=== PATIENT | female | born 1950 | race Caucasian/White ===

== ENCOUNTER → 2017-08-30 12:14 | Outpatient (CLI) | payer MEDICARE, SELFPAY ==
--- NOTE | 2017-08-30 13:36 | ECHOD_ITS ---
Reason For Study: Mitral valve regurgitation Procedure This was a 2D Doppler, Color Flow transthoracic echocardiogram. The exam was of adequate technical quality. Exam performed in department. Left Ventricle Normal LV size. Left ventricular systolic function is normal. The estimated ejection fraction is 65 %. Transmitral diastolic flow velocities suggest moderate (stage 2) diastolic dysfunction (pseudonormal pattern). No regional wall motion abnormalities noted. Right Ventricle Normal RV size. Normal systolic function. Atria The left atrium is mildly enlarged. The right atrium is mildly enlarged. No doppler evidence for ASD. Mitral Valve There is no mitral annular calcification. Normal mitral valve. Mild (1+) mitral valve insufficiency. Tricuspid Valve Normal tricuspid valve. Mild tricuspid valve insufficiency. Right ventricular systolic pressure estimated to be 28 mmHg. Aortic Valve Trisinus/trileaflet aortic valve. Normal aortic valve. Pulmonic Valve The pulmonic valve is not well visualized. Great Vessels Normal sized aortic root. Pericardium/Pleural No pericardial effusion. MMode/2D Measurements & Calculations LVIDd: 3.5 cm IVSd: 1.1 cm Ao root diam: 2.6 cm LVIDs: 1.6 cm LVPWd: 1.0 cm LA dimension: 2.7 cm RVDd: 2.8 cm FS: 53.9 % LAV(MOD-bp): 37.3 ml LA A4 area: 15.8 cm2 RA A4 area: 12.1 cm2 LAV(MOD-bp) Indexed: 25.5 ml/m2 LAV(MOD-sp2): 25.3 ml LAV(MOD-sp4): 39.4 ml Doppler Measurements & Calculations MV E max amari: 95.3 cm/sec Lat Peak E' Amari: 14.1 cm/sec Med Peak E' Amari: 10.5 cm/sec MV A max amari: 71.6 cm/sec E/E' lat: 6.8 E/E' med: 9.1 MV E/A: 1.3 Ao V2 max: 113.8 cm/sec LV V1 max: 89.7 cm/sec PA V2 max: 79.4 cm/sec Ao max P.2 mmHg LV V1 max P.2 mmHg TR max amari: 248.0 cm/sec TR max P.6 mmHg Interpretation Summary Left ventricular systolic function is normal. The estimated ejection fraction is 65 %. The left atrium is mildly enlarged. The right atrium is mildly enlarged. Mild (1+) mitral valve insufficiency. Mild tricuspid valve insufficiency. Right ventricular systolic pressure estimated to be 28 mmHg. Transmitral diastolic flow velocities suggest diastolic dysfunction (pseudonormal pattern). Ordering Physician: JOHNNY PATEL Referring Physician: Johnny Patel Performed By: Alyse Garza RDCS
--- NOTE | 2017-08-31 07:09 | PFTCOMP_ITS ---
COMPLETE PULMONARY FUNCTION TEST INTERPRETATION Brief HPI: Patient is a 67 year old female, currently under the care of Richard Shaw, who presents to [facility] for complete pulmonary function tests secondary to diagnosis of tobacco use. Respiratory therapist reports good effort and reproducible results. Interpretation: Forced expiration spirometry shows no large airways obstructive ventilatory defect with an FEV1 of 81 % predicted. There is no significant bronchodilator response by ATS criteria. Spirograms are of good quality and plateau normally. The respiratory flow volume loop shows decreased expiratory flow rates at high lung volumes consistent with small airways obstruction. Lung volumes by body plethysmography show a decreased total lung capacity at 3.86 L, 80 % predicted. All other lung volumes are reduced symmetrically. Diffusion capacity by carbon monoxide is at the lower limit of normal at 67 % predicted. The airway resistance is normal. No previous pulmonary function tests were available for review. Impression: Mild restrictive ventilatory defect with diffusion capacity at the lower limit of normal. Consider chest imaging for interstitial lung disease or musculoskeletal restriction if not completed previously.
== END ==
PROVIDERS: Family Provider Nurse Practitioner Family; PCP Nurse Practitioner Family; Visit Provider Nurse Practitioner Family
DX: I34.0 Nonrheumatic mitral (valve) insufficiency (principal); I07.1 Rheumatic tricuspid insufficiency; R01.1 Cardiac murmur, unspecified; F17.200 Nicotine dependence, unspecified, uncomplicated
CPT/HCPCS: 93306; 94060; 94726; 94729

== ENCOUNTER → 2017-09-05 13:23 | Outpatient (CLI) | payer MEDICARE, SELFPAY ==
--- NOTE | 2017-09-05 13:25 | HPBI_ITS ---
MAMMOGRAPHY - BILATERAL SCREENING REASON FOR EXAM: Female, 67 years old. Routine annual screening examination. PERTINENT HISTORY: Non-contributory. TECHNIQUE: Digital bilateral breast yoseph (3D mammographic acquisition) in the CC and MLO projections. 2-D mediolateral oblique (MLO) and craniocaudad (CC) views of both breasts were obtained. CAD: Full Field Digital Mammography with Computer Added Detection was performed. COMPARISON: Comparison is made with prior examination dated August 12, 2014. FINDINGS: Breast Composition: The breasts are heterogeneously dense, which may obscure small masses. There are no dominant masses or suspicious calcifications. Stable vascular calcification. Stable calcified nodular density in the deep upper lateral portion of the left breast. This most likely represents a calcified fibroadenoma. No other significant abnormalities are identified. There has been no significant change since the prior study. HPBI/SCREENING MAMM (CAD), BILAT IMPRESSION: Stable bilateral screening mammogram. Yearly follow-up mammogram recommended. (A) ASSESSMENT CATEGORY: BIRADS Category 2: Benign. A letter regarding these results will be sent to the patient by the facility within 30 days. Approximately 10% of breast cancers are not detected by mammography. A normal mammogram should not delay biopsy of a clinically suspicious abnormality. [id number] Electronically Signed: Jericho Garcia MD at 15:27 EST Tel [phone], Service support ,
--- NOTE | 2017-09-05 13:25 | HPBD_ITS ---
STUDY: DUAL ENERGY X-RAY ABSORPTIOMETRY / DXA REASON FOR EXAM: Female, 67 years old. The patient is postmenopausal. Loss of height. TECHNIQUE: Bone Mineral Density (BMD) measurements of lumbar spine and right hip were obtained. COMPARISON: None. FINDINGS: Lumbar Spine (L1-L4): g/cm2 (0.813) / T-score (-3.2) / Z-score (-1.6) Findings are suggestive of osteoporosis with a high fracture risk. Right Femur Total: g/cm2 (0.512) / T-score (-3.9) / Z-score (-2.7) Right Femoral Neck: g/cm2 (0.606) / T-score (-3.1) / Z-score (-1.6) HPBD/Dexa Bone Density Study (HP) IMPRESSION: The patient is considered osteoporotic as outlined below according to World Kel Organization (WHO) criteria with a high fracture risk. Reference Information: The T-score is the number of standard deviations above or below the standard which is normal for young adults at their peak bone mineral density. The World Health Organization (WHO) interprets the T-scores as follows: Above -1 Normal bone density Between -1 and -2.5 Osteopenia Equal to / or below -2.5 Osteoporosis As a practical clinical guideline, osteopenia may be graded as follows: Mild -1 through -1.5 Moderate -1.6 through -2.0 Severe -2.1 through -2.4 The Z-score is the number of standard deviations above or below age-matched controls. A Z-score of less than -1.5 would be considered abnormal. References: 1. NIH Osteoporosis and Related Bone Diseases http://www.osteo.org 2. International Society for Clinical Densitometry http://www.iscd.org 3. National Osteoporosis Foundation http://www.nof.org Electronically Signed: Jericho Garcia MD at 15:20 EST Tel [phone], Service support ,
== END ==
PROVIDERS: Family Provider Nurse Practitioner Family; PCP Nurse Practitioner Family; Visit Provider Nurse Practitioner Family
DX: Z78.0 Asymptomatic menopausal state (principal); Z12.31 Encounter for screening mammogram for malignant neoplasm of breast
CPT/HCPCS: 77063; 77067; 77080

== ENCOUNTER → 2017-09-21 02:46 | Outpatient (CLI) | payer MEDICARE, SELFPAY ==
[2017-09-21 03:12] LABS: Absolute Lymphocyte Count 2.42 X10^3/ul (0.83-4.51); Absolute Neutrophil Count 3.2 X10^3/uL (2.0-7.7); Basophil# 0.06 X10^3/uL; Basophil% 0.9 % (0-1); Eosinophil# 0.17 X10^3/uL; Eosinophils% 2.7 % (0-5); Hematocrit 40.2 % (37-47); Lymphocyte # 2.42 X10^3/ul (4.0); Lymphocyte % 37.8 % (19-41); Mean Corp Hgb Conc 32.3 g/gl (32-36); Mean Corpuscular Hgb 33.2 pg (27.0-32.0); Mean Corpuscular Volume 102.6 fL (81-99); Mean Platelet Vol. 9.4 fl (6.2-12.0); Monocyte# 0.57 X10^3/uL; Monocyte% 8.9 % (0-10); Neutrophil # 3.18 X10^3/uL (2.7-7.7); Neutrophil % 49.7 % (47-70); POSITIVE COUNT NO; POSITIVE DIFFERENTIAL NO; POSITIVE MORPHOLOGY NO; Platelet Count 190 K/mm3 (150-450); Red Blood Count 3.92 M/mm3 (4.2-5.4); White Blood Count 6.4 K/mm3 (4.4-11.0)
[2017-09-21 03:57] LABS: AST(SGOT) 24 U/L (15-37); Alanine Aminotransfer ALT/SGPT 28 U/L (13-56); Albumin, Serum 3.5 g/dL (3.2-5.0); Alkaline Phosphatase 89 U/L (45-117); Anion Gap 6 (5-15); BUN 7 mg/dL (7-18); BUN/Creat Ratio 8.1 RATIO (10-20); Calcium,Total 8.6 mg/dL (8.5-10.1); Chloride 109 mmol/L (98-107); Cholesterol 180 mg/dL (200); Creatinine, Serum 0.86 mg/dL (0.55-1.02); EST Glomerular Filtration Rate 70 mL/min (>60); Est Glom Filt Rate - Afr Amer 85 mL/min (>60); Globulin 3.6 g/dL (2.2-4.2); Glucose 80 mg/dL (74-106); High Density Lipoprotein 63 mg/dL; Potassium 4.3 mmol/L (3.5-5.1); Protein, Total 7.1 g/dL (6.4-8.2); Sodium Level 143 mmol/L (136-145); Triglycerides 123 mg/dL; Very Low Density Lipoprotein 25 mg/dL (5-40)
== END ==
PROVIDERS: Family Provider Nurse Practitioner Family; PCP Nurse Practitioner Family; Visit Provider Nurse Practitioner Family
DX: E78.5 Hyperlipidemia, unspecified (principal); I10 Essential (primary) hypertension
CPT/HCPCS: 36415; 80053; 80061; 85025

== ENCOUNTER → 2017-10-15 10:50 | Outpatient (CLI) | payer MEDICARE, SELFPAY ==
--- NOTE | 2017-10-15 11:12 | RAD_ITS ---
STUDY: X-RAY CHEST REASON FOR EXAM: Female, 67 years old. Chest pain, short of breath, COPD. TECHNIQUE: Frontal and lateral views of the chest. COMPARISON: 1 view the chest performed February 24, 2015. FINDINGS: There is hyperinflation of the lungs consistent with chronic obstructive lung disease (COPD). There is stable, mildly nodular, biapical pleural thickening appearing benign. There is no pneumothorax or pleural effusion. There is a curvilinear density seen only convincingly on the lateral view posterior to the cardiac margin and anterior to the vertebral column. This finding may represent atelectasis of a segment of the right middle lobe or of the right lower lobe. Alternatively this finding may represent pericardial fluid. There is borderline cardiomegaly. Normal mediastinum and tom. Normal visualized pulmonary arteries. There is atherosclerotic calcification of the aortic arch with tortuosity. Normal visualized thoracic spine. There is no evident acute osseous abnormality. There is no demonstrated abnormality of the visualized soft tissue structures of the upper abdomen. RAD/Chest PA and Lateral IMPRESSION: Hyperinflation and flattening of hemidiaphragms consistent with COPD. No focal alveolar opacification. Minimal nodular biapical pleural thickening/fibrosis 8.3 cm in length curvilinear density seen only convincingly on the lateral view posterior to the cardiac margin and anterior to the vertebral column. This finding may represent atelectasis of a segment of the right middle lobe or of the right lower lobe. Alternatively this finding may represent pericardial fluid. Overall, no convincing evidence of acute cardiopulmonary disease. Electronically Signed: Delvis Valera MD at 9:16 EDT , Service support ,
[2017-10-15 11:40] VITALS: PULSE 67; PULSE 70; PULSE 88; PULSE 91; PULSE 93; PULSE 94; PULSE 97; O2SAT 100; O2SAT 93; O2SAT 96; O2SAT 97; O2SAT 98; O2SAT 99
--- NOTE | 2017-10-15 13:08 | PCM.PSN.6M ---
PSN 6 Minute Walk Test - 6 Minute Walk Test 6 Minute Walk Test: 6 Minute Walk Test PSN:6-Minute Walk Test Start: 10/15/17 11:40 Freq: Status: Active Protocol: [id number] Document 10/15/17 11:40 [facility] [place]Rec: 10/15/17 11:43 [facility] [id number][place] 6 Minute Walk Test Date Performed 10/15/17 Time Performed 11:25 Height 5 ft 4 in Weight: 103 lb Weight in Pounds 103.[address]: Richard Lincoln Assistive device used: Cane Pre-test Oxygen Delivery Method Room Air Pulse Ox (%) 99 Pulse Rate (60-100 beats/min) 67 Dyspnea Idalia Scale (0-10) 0 Exertion Idalia Scale (6-20) 6 1st minute Oxygen Delivery Method Room Air Pulse Ox (%) 97 Pulse Rate (60-100 beats/min) 88 Number of Rests Taken 0 2nd minute Oxygen Delivery Method Room Air Pulse Ox (%) 96 Pulse Rate (60-100 beats/min) 93 Number of Rests Taken 0 3rd minute Oxygen Delivery Method Room Air Pulse Ox (%) 96 Pulse Rate (60-100 beats/min) 94 Number of Rests Taken 0 4th minute Oxygen Delivery Method Room Air Pulse Ox (%) 98 Pulse Rate (60-100 beats/min) 91 Number of Rests Taken 0 5th minute Oxygen Delivery Method Room Air Pulse Ox (%) 98 Pulse Rate (60-100 beats/min) 97 Number of Rests Taken 0 6th minute Oxygen Delivery Method Room Air Pulse Ox (%) 93 Pulse Rate (60-100 beats/min) 97 Number of Rests Taken 0 Post-test Oxygen Delivery Method Room Air Pulse Ox (%) 100 Pulse Rate (60-100 beats/min) 70 Dyspnea Idalia Scale (0-10) 2 Exertion Idalia Scale (6-20) 12 Number of Rests Taken 0 Full Laps Walked 18 Partial Lap, Number of Tiles Walked 34 Total Distance Walked (ft) 1096 - Interpretation Interpretation: The patient ambulated 1096 feet over the course of 6 minutes on room air with use of a cane. Pretesting oxygen saturation was noted be 99% on room air. With ambulation, the anjana oxygen saturation was 93% at minute 6 of testing. This represents a significant exertional oxygen desaturation. - Recommendations Recommendations: There is no indication for the use of supplemental oxygen at this time. However, close interval follow-up is recommended, given the degree of oxygen desaturation noted during this study.
== END ==
PROVIDERS: Family Provider Nurse Practitioner Family; PCP Nurse Practitioner Family; Visit Provider Nurse Practitioner Family
DX: J44.9 Chronic obstructive pulmonary disease, unspecified (principal); I34.0 Nonrheumatic mitral (valve) insufficiency; R94.2 Abnormal results of pulmonary function studies; R79.81 Abnormal blood-gas level; R01.1 Cardiac murmur, unspecified; R07.9 Chest pain, unspecified
CPT/HCPCS: 71046; 94618; 94762

== ENCOUNTER → 2017-10-24 06:30 | Outpatient (CLI) | payer MEDICARE, SELFPAY ==
--- NOTE | 2017-10-24 17:43 | STRESSREP ---
Stress Test Report Exercise myocardial perfusion stress test. 67-year-old lady with a history of chest pain. Stress protocol: Resting EKG demonstrates normal sinus rhythm with a rate of 64 bpm normal intervals and noted resting blood pressure is 142/92 mmHg. The patient exercised according to regular Rajinder protocol for total duration of 4 minutes and 12 seconds the maximum heart rate attained was 1 64 bpm which was 106% maximum predicted heart rate the maximum workload attained was 6 metabolic equivalents. At rest there were no ST or T-wave changes noted suggest ischemia peak exercise upsloping ST changes only were noted with no meet the criteria for ischemia. No clinical angina was noted the test was terminated due to leg fatigue. Resting blood pressure was 142/92 with a peak blood pressure 170/84. Myocardial perfusion protocol. 11.1 mCi of technetium 99m sestamibi was injected at rest. She Is a conservative was protocol for 4 minutes and 12 seconds attaining 106% maximum predicted heart rate and a workload of 6 metastases. Peak exercise 31.5 mCi of technetium 99m sestamibi was injected stress images were obtained stress and rest images reconstructed and compared in the short axis vertical long horizontal gated images were also obtained Perfusion SPECT analysis. Review of the stress images demonstrate normal uptake of tracer noted in all areas myocardium. The rest images similarly demonstrate normal uptake of tracer noted on his myocardium. No reversibility is noted suggest ischemia no previous infarct is noted. Gated SPECT analysis: The gated ejection fraction is noted to be 80%. Conclusion: Normal exercise myocardial perfusion stress test at a moderate workload. Preserved ejection fraction. No angina noted.
== END ==
PROVIDERS: Family Provider Nurse Practitioner Family; PCP Nurse Practitioner Family; Visit Provider Nurse Practitioner Family
DX: R07.9 Chest pain, unspecified (principal)
CPT/HCPCS: 78452; 93017; A9500; A4216

== ENCOUNTER → 2017-12-04 08:41 | Outpatient (CLI) | payer MEDICARE, SELFPAY ==
--- NOTE | 2017-12-04 08:44 | ECHOD_ITS ---
Reason For Study: Chest Pain Procedure This was a 2D Doppler, Color Flow transthoracic echocardiogram. Exam performed in department. Left Ventricle Normal size and thickness. The estimated ejection fraction is 65 %. Stage 1 diastolic dysfunction. No regional wall motion abnormalities noted. Right Ventricle Normal size and thickness. Normal systolic function. Atria Normal left atrium. Normal right atrium. Normal atrial septum. Mitral Valve The mitral valve is structurally normal. No prolapse or stenosis seen. Tricuspid Valve Normal tricuspid valve. Mild (1+) tricuspid valve insufficiency. Right ventricular systolic pressure estimated to be 30 mmHg. Aortic Valve Normal aortic valve. Trisinus/trileaflet aortic valve. Pulmonic Valve Normal pulmonic valve. Great Vessels Normal aortic root. Normal arch. Normal inferior vena cava. Inferior vena cava collapse with sniff. Pericardium/Pleural No pericardial effusion. MMode/2D Measurements & Calculations LVIDd: 3.4 cm IVSd: 1.1 cm Ao root diam: 3.8 cm LVIDs: 2.0 cm LVPWd: 0.93 cm LA dimension: 2.9 cm RVDd: 2.5 cm FS: 41.2 % LAV(MOD-bp): 39.7 ml LVAd ap4: 18.1 cm2 SV(MOD-sp4): 25.8 ml LAV(MOD-bp) Indexed: 27.2 ml/m2 EDV(MOD-sp4): 41.6 ml LAV(MOD-sp2): 26.7 ml EDV(sp4-el): 41.3 ml LAV(MOD-sp4): 45.0 ml LVAs ap4: 10.0 cm2 ESV(MOD-sp4): 15.8 ml ESV(sp4-el): 14.6 ml EF(MOD-sp4): 62.1 % EF(sp4-el): 64.7 % SV(sp4-el): 26.7 ml LA A4 area: 18.1 cm2 RA A4 area: 14.7 cm2 Time Measurements MV dec time: 0.24 sec Doppler Measurements & Calculations MV E max amari: 78.2 cm/sec Lat Peak E' Amari: 13.3 cm/sec Med Peak E' Amari: 8.2 cm/sec MV A max amari: 92.7 cm/sec E/E' lat: 5.9 E/E' med: 9.6 MV E/A: 0.84 MV V2 max: 105.0 cm/sec MV P1/2t max amari: 96.3 cm/sec Ao V2 max: 105.7 cm/sec MV max P.4 mmHg MV P1/2t: 69.5 msec Ao max P.5 mmHg MV V2 mean: 53.3 cm/sec MV dec slope: 406.0 cm/sec2 Ao V2 mean: 63.1 cm/sec MV mean P.4 mmHg MVA(P1/2t): 3.2 cm2 Ao mean P.9 mmHg MV V2 VTI: 30.7 cm Ao V2 VTI: 21.9 cm LV V1 max: 90.1 cm/sec PA V2 max: 80.9 cm/sec TR max amari: 249.1 cm/sec LV V1 max P.2 mmHg TR max P.8 mmHg LV V1 mean P.4 mmHg LV V1 mean: 54.0 cm/sec LV V1 VTI: 18.8 cm Interpretation Summary The estimated ejection fraction is 65 %. Stage 1 diastolic dysfunction. Mild (1+) tricuspid valve insufficiency. Right ventricular systolic pressure estimated to be 30 mmHg. In comparison to echo report dated 08/30/2017, no appreciable changes noted. Ordering Physician: Abdifatah Ruffin Referring Physician: Abdifatah Ruffin Performed By: Kj Alvarez RCS
[2017-12-04 09:42] LABS: Absolute Lymphocyte Count 2.39 X10^3/ul (0.83-4.51); Basophil# 0.03 X10^3/uL; Basophil% 0.5 % (0-1); Eosinophil# 0.12 X10^3/uL; Hematocrit 42.1 % (37-47); Hemoglobin 13.9 g/dl (12.0-15.0); Lymphocyte # 2.39 X10^3/ul (4.0); Lymphocyte % 39.7 % (19-41); Mean Corpuscular Hgb 33.6 pg (27.0-32.0); Mean Corpuscular Volume 101.7 fL (81-99); Mean Platelet Vol. 9.8 fl (6.2-12.0); Monocyte# 0.44 X10^3/uL; Monocyte% 7.3 % (0-10); Neutrophil # 3.03 X10^3/uL (2.7-7.7); Neutrophil % 50.3 % (47-70); Platelet Count 168 K/mm3 (150-450); RBC Distribution Width CV 12.5 % (11.6-14.6); RBC Distribution Width SD 46.4 fl (35.1-43.9); Red Blood Count 4.14 M/mm3 (4.2-5.4)
[2017-12-04 09:45] LABS: POSITIVE COUNT NO; POSITIVE DIFFERENTIAL NO; POSITIVE MORPHOLOGY NO
[2017-12-04 10:07] LABS: ALB/GLOB Ratio 1.1 RATIO (0.9-2.4); AST(SGOT) 21 U/L (15-37); Alanine Aminotransfer ALT/SGPT 17 U/L (13-56); Albumin, Serum 4.1 g/dL (3.2-5.0); Alkaline Phosphatase 74 U/L (45-117); Anion Gap 5 (5-15); BUN 7 mg/dL (7-18); BUN/Creat Ratio 8.3 RATIO (10-20); Bilirubin, Direct 0.12 mg/dL (0.00-0.30); Chloride 111 mmol/L (98-107); Cholesterol 200 mg/dL (200); Creatinine, Serum 0.84 mg/dL (0.55-1.02); EST Glomerular Filtration Rate 72 mL/min (>60); Est Glom Filt Rate - Afr Amer 87 mL/min (>60); Globulin 3.7 g/dL (2.2-4.2); Glucose 85 mg/dL (74-106); High Density Lipoprotein 67 mg/dL; Protein, Total 7.8 g/dL (6.4-8.2); Sodium Level 145 mmol/L (136-145); Triglycerides 121 mg/dL; Very Low Density Lipoprotein 24 mg/dL (5-40)
[2017-12-04 10:14] LABS: Vitamin D,25 Hydroxy 11.2 ng/mL (29.95-100.01)
== END ==
PROVIDERS: Family Provider Nurse Practitioner Family; PCP Nurse Practitioner Family; Visit Provider Internal Medicine Cardiovascular Disease
DX: R07.9 Chest pain, unspecified (principal); I10 Essential (primary) hypertension; E55.9 Vitamin D deficiency, unspecified; F17.209 Nicotine dependence, unspecified, with unspecified nicotine-induced disorders
CPT/HCPCS: 80053; 80061; 82248; 82306; 85025; 93306

== ENCOUNTER → 2018-01-11 06:58 | Outpatient (CLI) | payer MEDICARE, SELFPAY ==
--- NOTE | 2018-01-11 07:03 | CT_ITS ---
STUDY: LOW DOSE CT LUNG CANCER SCREENING REASON FOR EXAM: Female, 67 years old. Smoker 1 PPD x 50 years. RADIATION DOSAGE (If Supplied By Facility): CTDIvol = ( 2.01 ) mGy, DLP = ( 69.22 ) mGycm TECHNIQUE: No contrast was administered. Low dose technique was utilized (average mAS-38 and kVp 120). 1.25 mm axial source images with a slice interval of 1.25-mm were reconstructed in lung windows. 2.5 mm axial source images with a slice interval of 2.5-mm were reconstructed in lung windows. 5.0 mm axial source images with a slice interval of 5.0-mm were reconstructed in soft tissue windows. Nodule measured using lung windows on PACS and/or independent workstation with automated measurement of minimum and maximum diameter. Nodule measurement reported as average diameter rounded to the nearest whole number. Growth is defined as an increase ins size of greater than 1.5 mm. COMPARISON: None. NODULES: Nodule: No worrisome lung nodule or mass is identified. Emphysema: Moderately severe emphysematous changes are seen with subpleural emphysematous blebs in the upper lobes and with hyperinflation of the lungs. There is significant biapical pleural parenchymal thickening and scarring noted. Underlying scar neoplasm is not completely ruled out. Endobronchial lesion: None. Aorta: There is atherosclerotic calcification of the aortic arch and descending aorta. Coronary arteries: Proximal calcification of the left coronary arteries. Heart: Normal in size. There is pectus excavating deformity of the anterior chest wall. Pulmonary artery: Mediastinal nodes: Multiple reactive mediastinal lymph nodes. Other chest and abdominal findings: Diffuse bony demineralization. Increased thoracic kyphosis. CT/Low Dose CT Lung Screening IMPRESSION: No demonstrated pulmonary malignancy. Lung-RADS category 2 - Continue annual screening with LDCT in 12 months. Moderately severe paraseptal pulmonary emphysema. Biapical marked pleural parenchymal thickening and scarring. Pectus excavating deformity IMPORTANT NOTES FOR USE: ACR Lung-RADS Version 1.0 Assessment Categories Release Date: November 16, 2013 Category: Coded 0-4 bases on nodule(s) with highest degree of suspicion. Negative screen is defined as categories 1 and 2; a positive screen is defined as categories 3 and 4. Category 3 and 4A nodules that are unchanged on interval CT should be coded as category 2, and individuals returned to screening in 12 months. Category 4X: Category 3 or 4 nodules with additional imaging findings that increase the suspicion of lung cancer, such as spiculation, GGN that doubles in size in 1 year, enlarged lymph notes, etc. Category Modifiers: S (significant finding unrelated to lung cancer) and C (prior history of treated lung cancer) may be added to the 0-4 Lung-RADS Electronically Signed: Shad Parker MD at 8:24 EDT Tel , Service support ,
== END ==
PROVIDERS: Family Provider Nurse Practitioner Family; PCP Nurse Practitioner Family; Visit Provider Internal Medicine Critical Care Medicine
DX: Z12.2 Encounter for screening for malignant neoplasm of respiratory organs (principal); J98.4 Other disorders of lung; Z87.891 Personal history of nicotine dependence
CPT/HCPCS: G0297

== ENCOUNTER → 2018-06-02 08:10 | Outpatient (CLI) | payer MEDICARE, SELFPAY ==
[2018-06-02 09:52] LABS: Absolute Lymphocyte Count 1.81 X10^3/ul (0.83-4.51); Basophil# 0.04 X10^3/uL; Basophil% 0.6 % (0-1); Eosinophil# 0.13 X10^3/uL; Hematocrit 42.9 % (37-47); Hemoglobin 13.3 g/dl (12.0-15.0); Lymphocyte # 1.81 X10^3/ul (4.0); Lymphocyte % 28.1 % (19-41); Mean Corpuscular Hgb 32.6 pg (27.0-32.0); Mean Corpuscular Volume 105.1 fL (81-99); Mean Platelet Vol. 10.6 fl (6.2-12.0); Monocyte# 0.48 X10^3/uL; Monocyte% 7.4 % (0-10); Neutrophil # 3.98 X10^3/uL (2.7-7.7); Neutrophil % 61.7 % (47-70); Platelet Count 193 K/mm3 (150-450); RBC Distribution Width CV 12.2 % (11.6-14.6); RBC Distribution Width SD 46.8 fl (35.1-43.9); Red Blood Count 4.08 M/mm3 (4.2-5.4); White Blood Count 6.5 K/mm3 (4.4-11.0)
[2018-06-02 10:03] LABS: POSITIVE COUNT NO; POSITIVE DIFFERENTIAL NO; POSITIVE MORPHOLOGY NO
[2018-06-02 10:31] LABS: ALB/GLOB Ratio 1.1 RATIO (0.9-2.4); AST(SGOT) 21 U/L (15-37); Alanine Aminotransfer ALT/SGPT 27 U/L (13-56); Albumin, Serum 3.9 g/dL (3.2-5.0); Alkaline Phosphatase 82 U/L (45-117); Anion Gap 7 (5-15); BUN 13 mg/dL (7-18); BUN/Creat Ratio 14.4 RATIO (10-20); Calcium,Total 8.7 mg/dL (8.5-10.1); Chloride 110 mmol/L (98-107); Cholesterol 148 mg/dL (200); EST Glomerular Filtration Rate 66 mL/min (>60); Est Glom Filt Rate - Afr Amer 80 mL/min (>60); Globulin 3.4 g/dL (2.2-4.2); Glucose 79 mg/dL (74-106); High Density Lipoprotein 59 mg/dL; Potassium 4.1 mmol/L (3.5-5.1); Protein, Total 7.3 g/dL (6.4-8.2); Sodium Level 145 mmol/L (136-145); Triglycerides 122 mg/dL; Very Low Density Lipoprotein 24 mg/dL (5-40)
[2018-06-02 10:35] LABS: Vitamin D,25 Hydroxy 47.3 ng/mL (29.95-100.01)
== END ==
PROVIDERS: Family Provider Nurse Practitioner Family; PCP Nurse Practitioner Family; Referring Provider Nurse Practitioner Family; Visit Provider Nurse Practitioner Family
DX: E55.9 Vitamin D deficiency, unspecified (principal); I10 Essential (primary) hypertension; E78.5 Hyperlipidemia, unspecified
CPT/HCPCS: 36415; 80053; 80061; 82306; 85025

== ENCOUNTER → 2018-12-02 08:31 | Outpatient (CLI) | payer MEDICARE, SELFPAY ==
[2018-12-02 10:21] LABS: Absolute Lymphocyte Count 2.28 X10^3/ul (0.83-4.51); Absolute Neutrophil Count 3.6 X10^3/uL (2.0-7.7); Basophil# 0.02 X10^3/uL; Basophil% 0.3 % (0-1); Eosinophil# 0.04 X10^3/uL; Eosinophils% 0.6 % (0-5); Hematocrit 44.7 % (37-47); Hemoglobin 14.6 g/dl (12.0-15.0); Lymphocyte # 2.28 X10^3/ul (4.0); Lymphocyte % 35.6 % (19-41); Mean Corp Hgb Conc 32.7 g/gl (32-36); Mean Corpuscular Hgb 32.7 pg (27.0-32.0); Mean Platelet Vol. 10.3 fl (6.2-12.0); Monocyte# 0.46 X10^3/uL; Monocyte% 7.2 % (0-10); Neutrophil % 56.1 % (47-70); Platelet Count 213 K/mm3 (150-450); RBC Distribution Width CV 12.5 % (11.6-14.6); RBC Distribution Width SD 45.1 fl (35.1-43.9); Red Blood Count 4.47 M/mm3 (4.2-5.4); White Blood Count 6.4 K/mm3 (4.4-11.0)
[2018-12-02 10:25] LABS: POSITIVE COUNT NO; POSITIVE DIFFERENTIAL NO; POSITIVE MORPHOLOGY NO
[2018-12-02 11:00] LABS: Vitamin D,25 Hydroxy 21.5 ng/mL (29.95-100.01)
[2018-12-02 11:08] LABS: ALB/GLOB Ratio 1.2 RATIO (0.9-2.4); AST(SGOT) 26 U/L (15-37); Alanine Aminotransfer ALT/SGPT 34 U/L (13-56); Albumin, Serum 4.2 g/dL (3.2-5.0); Alkaline Phosphatase 89 U/L (45-117); Anion Gap 3 (5-15); BUN 10 mg/dL (7-18); BUN/Creat Ratio 11.6 RATIO (10-20); Chloride 110 mmol/L (98-107); Cholesterol 178 mg/dL (200); Creatinine, Serum 0.86 mg/dL (0.55-1.02); EST Glomerular Filtration Rate 70 mL/min (>60); Est Glom Filt Rate - Afr Amer 85 mL/min (>60); Globulin 3.5 g/dL (2.2-4.2); Glucose 76 mg/dL (74-106); High Density Lipoprotein 71 mg/dL; Protein, Total 7.7 g/dL (6.4-8.2); Sodium Level 141 mmol/L (136-145); Triglycerides 121 mg/dL; Very Low Density Lipoprotein 24 mg/dL (5-40)
== END ==
PROVIDERS: Family Provider Nurse Practitioner Family; PCP Nurse Practitioner Family; Referring Provider Nurse Practitioner Family; Visit Provider Nurse Practitioner Family
DX: I10 Essential (primary) hypertension (principal); E55.9 Vitamin D deficiency, unspecified; E78.5 Hyperlipidemia, unspecified
CPT/HCPCS: 36415; 80053; 80061; 82306; 85025

== ENCOUNTER → 2019-06-02 09:13 | Outpatient (CLI) | payer MEDICARE, SELFPAY ==
[2018-01-01 07:33] VITALS: BMI 17.3
[2019-06-02 10:17] LABS: Absolute Lymphocyte Count 2.41 X10^3/uL (0.83-4.51); Absolute Neutrophil Count 2.9 X10^3/uL (2.0-7.7); Basophil# 0.04 X10^3/uL; Basophil% 0.7 % (0-1); Eosinophil# 0.03 X10^3/uL; Eosinophils% 0.5 % (0-5); Hematocrit 42.2 % (37-47); Hemoglobin 13.4 g/dL (12.0-15.0); Lymphocyte # 2.41 X10^3/ul (4.0); Lymphocyte % 41.6 % (19-41); Mean Corp Hgb Conc 31.8 g/dL (32-36); Mean Corpuscular Hgb 32.4 pg (27.0-32.0); Mean Corpuscular Volume 101.9 fL (81-99); Mean Platelet Vol. 10.3 fl (6.2-12.0); Monocyte# 0.41 X10^3/uL; Monocyte% 7.1 % (0-10); NRBC Flagged by Analyzer 0 % (0-5); Neutrophil # 2.89 X10^3/uL (2.7-7.7); Neutrophil % 49.9 % (47-70); Platelet Count 171 K/mm3 (150-450); RBC Distribution Width CV 12.7 % (11.6-14.6); Red Blood Count 4.14 M/mm3 (4.2-5.4); White Blood Count 5.8 K/mm3 (4.4-11.0)
[2019-06-02 10:46] LABS: ALB/GLOB Ratio 1.3 RATIO (0.9-2.4); AST(SGOT) 19 U/L (15-37); Alanine Aminotransfer ALT/SGPT 24 U/L (13-56); Albumin, Serum 4.3 g/dL (3.2-5.0); Alkaline Phosphatase 67 U/L (45-117); Anion Gap 7 (5-15); BUN 13 mg/dL (7-18); BUN/Creat Ratio 14.6 RATIO (10-20); Calcium,Total 9.1 mg/dL (8.5-10.1); Chloride 110 mmol/L (98-107); Cholesterol 155 mg/dL (200); Creatinine, Serum 0.89 mg/dL (0.55-1.02); EST Glomerular Filtration Rate 67 mL/min (>60); Est Glom Filt Rate - Afr Amer 81 mL/min (>60); Globulin 3.3 g/dL (2.2-4.2); Glucose 83 mg/dL (74-106); High Density Lipoprotein 78 mg/dL; Protein, Total 7.6 g/dL (6.4-8.2); Sodium Level 143 mmol/L (136-145); Triglycerides 105 mg/dL; Very Low Density Lipoprotein 21 mg/dL (5-40)
[2019-06-02 10:47] LABS: Vitamin D,25 Hydroxy 54.3 ng/mL (29.95-100.01)
== END ==
PROVIDERS: Family Provider Nurse Practitioner Family; PCP Nurse Practitioner Family; Referring Provider Nurse Practitioner Family; Visit Provider Nurse Practitioner Family
DX: I10 Essential (primary) hypertension (principal); E78.5 Hyperlipidemia, unspecified; E55.9 Vitamin D deficiency, unspecified
CPT/HCPCS: 36415; 80053; 80061; 82306; 85025

== ENCOUNTER → 2019-12-02 09:00 | Outpatient (CLI) | payer MEDICARE, MEDICAID, SELFPAY ==
[2019-12-02 09:30] LABS: Hematocrit 44.2 % (37-47); Mean Corp Hgb Conc 31.7 g/dL (32-36); Mean Corpuscular Hgb 32.3 pg (27.0-32.0); Mean Corpuscular Volume 102.1 fL (81-99); Mean Platelet Vol. 10.4 fl (6.2-12.0); Platelet Count 162 K/mm3 (150-450); RBC Distribution Width CV 12.4 % (11.6-14.6); RBC Distribution Width SD 46.9 fl (35.1-43.9); Red Blood Count 4.33 M/mm3 (4.2-5.4); White Blood Count 7.1 K/mm3 (4.4-11.0)
[2019-12-02 09:57] LABS: Vitamin D,25 Hydroxy 36.4 ng/mL
[2019-12-02 10:03] LABS: ALB/GLOB Ratio 1.2 RATIO (0.9-2.4); AST(SGOT) 20 U/L (15-37); Alanine Aminotransfer ALT/SGPT 22 U/L (13-56); Albumin, Serum 4.1 g/dL (3.2-5.0); Alkaline Phosphatase 76 U/L (45-117); Anion Gap 4 (5-15); BUN 9 mg/dL (7-18); BUN/Creat Ratio 10.4 RATIO (10-20); Calcium,Total 9.2 mg/dL (8.5-10.1); Chloride 109 mmol/L (98-107); Cholesterol 154 mg/dL (200); Creatinine, Serum 0.87 mg/dL (0.55-1.02); EST Glomerular Filtration Rate 69 mL/min (>60); Est Glom Filt Rate - Afr Amer 83 mL/min (>60); Globulin 3.5 g/dL (2.2-4.2); Glucose 88 mg/dL (74-106); High Density Lipoprotein 72 mg/dL; Potassium 3.8 mmol/L (3.5-5.1); Protein, Total 7.6 g/dL (6.4-8.2); Sodium Level 143 mmol/L (136-145); Triglycerides 98 mg/dL; Very Low Density Lipoprotein 20 mg/dL (5-40)
== END ==
PROVIDERS: PCP Nurse Practitioner Family; Referring Provider Nurse Practitioner Family; Visit Provider Nurse Practitioner Family
DX: I10 Essential (primary) hypertension (principal); E78.5 Hyperlipidemia, unspecified; E55.9 Vitamin D deficiency, unspecified
CPT/HCPCS: 36415; 80053; 80061; 82306; 85027

== ENCOUNTER → 2020-04-30 09:25 | Outpatient (CLI) | payer MEDICARE, MEDICAID, SELFPAY ==
[2018-01-01 07:33] VITALS: BMI 17.3
[2020-04-30 10:08] LABS: Hematocrit 41.5 % (37-47); Hemoglobin 12.9 g/dL (12.0-15.0); Mean Corp Hgb Conc 31.1 g/dL (32-36); Mean Corpuscular Hgb 31.8 pg (27.0-32.0); Mean Corpuscular Volume 102.2 fL (81-99); Mean Platelet Vol. 10.2 fl (6.2-12.0); Platelet Count 190 K/mm3 (150-450); RBC Distribution Width CV 12.6 % (11.6-14.6); Red Blood Count 4.06 M/mm3 (4.2-5.4); White Blood Count 8.2 K/mm3 (4.4-11.0)
[2020-04-30 10:34] LABS: ALB/GLOB Ratio 1.1 RATIO (0.9-2.4); AST(SGOT) 15 U/L (15-37); Alanine Aminotransfer ALT/SGPT 17 U/L (13-56); Albumin, Serum 4.1 g/dL (3.2-5.0); Alkaline Phosphatase 75 U/L (45-117); Anion Gap 5 (5-15); BUN 12 mg/dL (7-18); BUN/Creat Ratio 10.5 RATIO (10-20); Calcium,Total 9.1 mg/dL (8.5-10.1); Chloride 109 mmol/L (98-107); Cholesterol 156 mg/dL (200); Creatinine, Serum 1.14 mg/dL (0.55-1.02); EST Glomerular Filtration Rate 50 mL/min (>60); Est Glom Filt Rate - Afr Amer 61 mL/min (>60); Globulin 3.9 g/dL (2.2-4.2); Glucose 87 mg/dL (74-106); High Density Lipoprotein 70 mg/dL; Potassium 3.6 mmol/L (3.5-5.1); Sodium Level 142 mmol/L (136-145); Triglycerides 104 mg/dL; Very Low Density Lipoprotein 21 mg/dL (5-40)
[2020-05-02 12:43] LABS: Vitamin D,25 Hydroxy 27.2 ng/mL
== END ==
PROVIDERS: PCP Nurse Practitioner Family; Referring Provider Nurse Practitioner Family; Visit Provider Nurse Practitioner Family
DX: E78.5 Hyperlipidemia, unspecified (principal); E55.9 Vitamin D deficiency, unspecified
CPT/HCPCS: 36415; 80053; 80061; 82306; 85027

== ENCOUNTER → 2021-02-02 08:47 | Outpatient (CLI) | payer MEDICARE, MEDICAID, SELFPAY ==
[2018-01-01 07:33] VITALS: BMI 17.3
[2021-02-02 10:05] LABS: Hematocrit 44.2 % (37-47); Hemoglobin 14.1 g/dL (12.0-15.0); Mean Corp Hgb Conc 31.9 g/dL (32-36); Mean Corpuscular Hgb 31.9 pg (27.0-32.0); Mean Platelet Vol. 10.3 fl (6.2-12.0); Platelet Count 204 K/mm3 (150-450); RBC Distribution Width CV 12.6 % (11.6-14.6); RBC Distribution Width SD 46.5 fl (35.1-43.9); Red Blood Count 4.42 M/mm3 (4.2-5.4); White Blood Count 6.5 K/mm3 (4.4-11.0)
[2021-02-02 10:41] LABS: ALB/GLOB Ratio 1.1 RATIO (0.9-2.4); AST(SGOT) 18 U/L (15-37); Alanine Aminotransfer ALT/SGPT 18 U/L (13-56); Albumin, Serum 3.9 g/dL (3.2-5.0); Alkaline Phosphatase 74 U/L (45-117); Anion Gap 4 (5-15); BUN 9 mg/dL (7-18); BUN/Creat Ratio 9.6 RATIO (10-20); Calcium,Total 8.9 mg/dL (8.5-10.1); Chloride 108 mmol/L (98-107); Cholesterol 158 mg/dL (200); Creatinine, Serum 0.94 mg/dL (0.55-1.02); EST Glomerular Filtration Rate 63 mL/min (>60); Est Glom Filt Rate - Afr Amer 76 mL/min (>60); Globulin 3.6 g/dL (2.2-4.2); Glucose 75 mg/dL (74-106); High Density Lipoprotein 61 mg/dL; Potassium 3.8 mmol/L (3.5-5.1); Protein, Total 7.5 g/dL (6.4-8.2); Sodium Level 141 mmol/L (136-145); Triglycerides 88 mg/dL; Very Low Density Lipoprotein 18 mg/dL (5-40)
[2021-02-02 10:43] LABS: Vitamin D,25 Hydroxy 23.5 ng/mL
== END ==
PROVIDERS: PCP Nurse Practitioner Family; Referring Provider Nurse Practitioner Family; Visit Provider Nurse Practitioner Family
DX: I12.9 Hypertensive chronic kidney disease with stage 1 through stage 4 chronic kidney disease, or unspecified chronic kidney disease (principal); N18.30 Chronic kidney disease, stage 3 unspecified; E78.5 Hyperlipidemia, unspecified; E55.9 Vitamin D deficiency, unspecified
CPT/HCPCS: 36415; 80053; 80061; 82306; 85027

== ENCOUNTER 2021-10-02 09:07 | Outpatient (CLI) | payer MEDICARE, MEDICAID, SELFPAY ==
[2021-10-02 10:14] LABS: Hematocrit 42.6 % (37-47); Hemoglobin 13.6 g/dL (12.0-15.0); Mean Corp Hgb Conc 31.9 g/dL (32-36); Mean Corpuscular Hgb 32.6 pg (27.0-32.0); Mean Corpuscular Volume 102.2 fL (81-99); Mean Platelet Vol. 10.2 fl (6.2-12.0); Platelet Count 224 K/mm3 (150-450); RBC Distribution Width CV 15.9 % (11.6-14.6); RBC Distribution Width SD 60.4 fl (35.1-43.9); Red Blood Count 4.17 M/mm3 (4.2-5.4); White Blood Count 7.6 K/mm3 (4.4-11.0)
[2021-10-02 10:42] LABS: Vitamin B12 414 pg/mL (211-911); Vitamin D,25 Hydroxy 17.6 ng/mL
[2021-10-02 10:57] LABS: ALB/GLOB Ratio 1.1 RATIO (0.9-2.4); AST(SGOT) 17 U/L (15-37); Alanine Aminotransfer ALT/SGPT 22 U/L (13-56); Albumin, Serum 4.1 g/dL (3.2-5.0); Alkaline Phosphatase 85 U/L (45-117); Anion Gap 5 (5-15); BUN 8 mg/dL (7-18); Chloride 107 mmol/L (98-107); Cholesterol 167 mg/dL (200); EST Glomerular Filtration Rate 75 mL/min (>60); Est Glom Filt Rate - Afr Amer 91 mL/min (>60); Globulin 3.6 g/dL (2.2-4.2); Glucose 94 mg/dL (74-106); High Density Lipoprotein 78 mg/dL; Potassium 3.5 mmol/L (3.5-5.1); Protein, Total 7.7 g/dL (6.4-8.2); Sodium Level 141 mmol/L (136-145); Triglycerides 98 mg/dL; Very Low Density Lipoprotein 20 mg/dL (5-40)
== END 2021-10-02 23:59 | disposition home or self-care (01) ==
LOC: LAB 09:08
PROVIDERS: PCP Nurse Practitioner Family; Referring Provider Nurse Practitioner Family; Visit Provider Nurse Practitioner Family
DX: D53.9 Nutritional anemia, unspecified (principal); J44.9 Chronic obstructive pulmonary disease, unspecified; N18.30 Chronic kidney disease, stage 3 unspecified; I12.9 Hypertensive chronic kidney disease with stage 1 through stage 4 chronic kidney disease, or unspecified chronic kidney disease; E78.5 Hyperlipidemia, unspecified; E55.9 Vitamin D deficiency, unspecified
CPT/HCPCS: 36415; 80053; 80061; 82306; 82607; 82746; 85027

== ENCOUNTER 2023-06-03 17:14 | Emergency (ER) | payer MEDICARE, MEDICAID, SELFPAY ==
[2023-06-03 17:15] VITALS: BP 93/55; PULSE 80; RESP 18; TEMP 36.4; O2SAT 97; BMI 15.5
--- NOTE | 2023-06-03 17:34 | ED.RN ---
PT DAUGHTER CALLED UPSET THAT PT IS STILL IN WAITING ROOM. STATES PT HAS BEEN HAVING PAIN FOR SEVERAL MONTHS. INFORMED DAUGHTER THAT WE ARE WORKING ON GETTING A ROOM BUT AT THIS TIME ALL OUR ROOMS ARE FULL. PT DAUGHTER STATES ARE YOU FUCKING KIDDING ME, YOU GUYS ARE FUCKING HORRIBLE. STATED YOU CAN FUCK OFF AND I WILL CALL HER AND TELL HER TO GO TO [facility] INFORMED FAMILY THAT THAT IS THEIR CHOICE
--- NOTE | 2023-06-03 17:45 | EKG12_ITS ---
Test Reason : CP Blood Pressure : / mmHG Vent. Rate : 067 BPM Atrial Rate : 067 BPM P-R Int : 144 ms QRS Dur : 064 ms QT Int : 424 ms P-R-T Axes : 082 061 068 degrees QTc Int : 448 ms Sinus rhythm with Premature atrial complexes Biventricular hypertrophy Septal infarct , age undetermined Abnormal ECG Confirmed by CONNIE TREADWELL, DOTTIE ([id number]), editor continuity and script ROSELINE LATHAM ([id number]) on 06/12/2023 10:10:30 AM Referred By: REBECCA/RU Confirmed By:DOTTIE ROSALES MD
--- NOTE | 2023-06-03 19:03 | EDS_ITS ---
HPI History of Present Illness Chief Complaint: Other, Pain/Inj Detail of Chief Complaint: Right upper back and shoulder pain Informant: patient Narrative Narrative: Patient presents with right upper back and shoulder pain that she has had for about 2 months. Patient's been seen at urgent care and by Dr. Gaytan and she has had x-rays. She is not sure if the results showed anything. She denies any falls or injuries. She denies any rashes to that area. Pain makes it hard to sleep at night. She denies chest pain. She denies shortness of breath. She denies recent travel or surgery. No history of PE or DVT. Patient rates her pain a 10 out of 10. [facility] Medical History (Updated 06/03/23 @ 22:[address] Jackson Khan, ) Abnormal EKG Chest pain COPD (chronic obstructive pulmonary disease) Heart murmur HLD (hyperlipidemia) HTN (hypertension) Nonrheumatic mitral valve regurgitation Nonrheumatic tricuspid valve regurgitation Postmenopausal osteoporosis Spinal stenosis of lumbar region Tobacco use disorder, continuous Vitamin D deficiency Home Medications metoprolol succinate 25 mg tablet,extended release 24 hr 25 mg PO QDAY 11/08/17 [History Last Taken Unknown] valsartan 320 mg tablet 320 mg PO QDAY 11/08/17 [History Last Taken Unknown] alendronate 70 mg tablet (Fosamax) 70 mg PO QWEEK 11/15/17 [History Last Taken Unknown] aspirin 81 mg tablet,delayed release (Adult Aspirin Regimen) 81 mg PO QDAY 11/15/17 [History Last Taken Unknown] albuterol sulfate 90 mcg/actuation aerosol inhaler 2 puff inhalation Q4H PRN shortness of breath #1 device 01/01/18 [Rx Last Taken Unknown] clopidogrel 75 mg tablet (Plavix) 75 mg PO QDAY #30 tabs 12/16/18 [Rx Last Taken Unknown] hydrocodone-acetaminophen 5-325mg 5mg-325mg 1 tab PO Q4H PRN PRN Pain 2 days #10 TABLETS 06/03/23 [Rx Last Taken Unknown] Allergy/AdvReac Type Severity Reaction Status Date / Time aspirin AdvReac Mild GI upset Verified 06/03/23 17:15 Family History Father CAD (coronary artery disease) Hypertension Kidney disease Cancer Hyperlipidemia Heart disease Brother CAD (coronary artery disease) Hypertension Hyperlipidemia Heart disease Mother Osteoarthritis Surgical History hip fracture and surgery History of partial hysterectomy History of vaginal hysterectomy Status post-operative repair of closed fracture of left hip Social History (Updated 01/01/18 @ 09:[address] Clay Forrester, DO) Smoking Status: Current every day smoker tobacco type: cigarettes Tobacco: How many years used: 54 alcohol intake: never substance use type: does not use ROS ROS ED Review of Systems ROS Unobtainable: other Constitutional Constitutional ED: Reports lethargy; Denies chills, fever(s), sweats or weight loss Eyes Eyes: Denies blurry vision, change in vision or diplopia ENT ENT ED: Denies rhinorrhea or sore throat Cardiovascular Cardiovascular: Denies chest pain, orthopnea or racing heartbeat Respiratory/Chest Respiratory/Chest: Denies cough, dyspnea, dyspnea on exertion, orthopnea or sputum Gastrointestinal Gastrointestinal: Denies abdominal pain, diarrhea, nausea or vomiting Genitourinary Genitourinary ED: Denies dysuria, hematuria or urinary frequency Musculoskeletal Musculoskeletal: Reports back pain and other Details: Right shoulder pain ; Denies arthralgias, myalgias or neck pain Integumentary Denies abscess, Abrasions or rash Neurologic Neurologic: Denies headache(s) or weakness Psychiatric Psychiatric: Denies anxiety, depression or suicidal thoughts Endocrine Endocrinology: Denies polydipsia, polyphagia or polyuria Hematologic/Lymphatic Hematologic/Lymphatic: Denies easy bleeding, easy bruising or lymphadenopathy Allergic/Immunologic Allergic/Immunologic ED: Denies mouth swelling, tongue swelling or urticaria EXAM Physical Exam Const Vital Signs: 06/03/23 17:15 06/03/23 19:59 06/03/23 21:15 Temperature 97.5 F L Temperature Source Temporal Pulse Rate 80 58 L Respiratory Rate 18 16 Respiratory Effort Normal Respiratory Pattern Normal Blood Pressure 93/55 L 129/69 H Blood Pressure Mean 67 89 Pulse Ox 97 100 Oxygen Delivery Method Room Air Room Air 06/03/23 22:21 Temperature Temperature Source Pulse Rate 58 L Respiratory Rate 16 Respiratory Effort Respiratory Pattern Blood Pressure 129/69 H Blood Pressure Mean 89 Pulse Ox 100 Oxygen Delivery Method Positive well nourished and well developed General Appearance ED: well developed and NAD HEENT Reports TM's clear and moist mucous membranes normocephalic and atraumatic; Negative for trauma or tenderness Tympanic Membrane ED: Yes TM's clear Eyes PERRL and EOMs intact bilaterally General Eye ED: Negative for pale conjunctiva or scleral icterus Neck no lymphadenopathy, supple and no JVD General: Negative for tenderness Chest Wall inspection of chest normal and palpation of chest normal Chest: Negative for tenderness Resp normal respiratory effort and clear to auscultation bilaterally Effort and Inspection: Negative for respiratory distress or pain with movement Auscultation: Negative for rhonchi, wheezes or diminished lung sounds Cardio regular rate, regular rhythm, S1 normal heart sound, S2 normal heart sound and no murmurs Peripheral Pulses: pulses 2+ throughout GI normal to inspection, nondistended, normoactive bowel sounds, soft to palpation, non-tender, non-distended and no masses Back/Spine no CVA tenderness and no thoracic nor lumbar tenderness Back/Spine Narrative: Unable to reproduce patient's pain with palpation. There are no herpetic rashes noted on her upper back or chest. She describes the pain in a pattern as around her right scapula radiating to her right shoulder and to the anterior right chest. Extremity normal to inspection General Extremety ED: Negative for edema General Extremity: Negative for edema Neuro oriented x3, CN's II-XII intact bilaterally, no sensory deficits noted and gait normal Sensorium / Orientation: awake, alert, oriented to person, oriented to place and oriented to time Motor Exam: strength 5/5 throughout and strength abnormal Psych mental status grossly normal Skin no rashes or lesions noted and no wounds MDM MDM MDM Narrative Medical decision making narrative: Patient presents with right upper back and shoulder pain x2 months. In the differential would be musculoskeletal etiology versus PE versus lung pathology. IV line established. CBC with differential obtained showing a 7.4 with hemoglobin 11 and platelet count of 239. Chemistries unremarkable. D-dimer elevated 1.02. CTA of the chest was obtained to rule out PE which was negative for PE however it did show a right upper lobe mass infiltrating the pleura and possibly T3 vertebrae. I discussed results with patient. She does not want to be admitted she wants to follow-up as an outpatient to have this worked up further. I did medicate her with morphine and Zofran initially and she had good pain relief with that. Clinically patient looks well. We will write her a prescription for [place] for pain. We will discuss case with pulmonology to ensure close follow-up. May also refer to oncology for follow-up. Lab Data Attestation: I reviewed the patient's lab results. Labs: Laboratory Results - last 24 hr 06/03/23 19:30 WBC 7.4 RBC 3.06 L Hgb 11.2 L Hct 34.4 L MCV 112.4 H MCH 36.6 H MCHC 32.6 RDW Std Deviation 63.1 H RDW Coeff of Jale 15.2 H Plt Count 239 MPV 8.9 Immature Gran % (Auto) 0.500 Neut % (Auto) 73.4 H Lymph % (Auto) 17.3 L [place] % (Auto) 7.7 Eos % (Auto) 0.7 Baso % (Auto) 0.4 Absolute Neuts (auto) 5.4 Absolute Lymphs (auto) 1.28 Nucleated RBC % 0 D-Dimer Quant (PE/DVT) 1.02 H* Sodium 144 Potassium 3.7 Chloride 116 H Carbon Dioxide 21.0 Anion Gap 7 BUN 18 Creatinine 0.88 Estim Creat Clear Calc 37.61 Est GFR (MDRD) Af Amer 81 Est GFR (MDRD) Non-Af 67 BUN/Creatinine Ratio 20.3 H Glucose 104 Calcium 8.8 Troponin I High Sens 7 Radiography Diagnostic Testing: Clinical Impression(s) from Imaging Studies Chest CTA 06/03/23 20:15 IMPRESSION: undefined EKG Initial EKG: Attestation: I personally reviewed and interpreted this EKG as follows: Comments: Sinus rhythm with a rate of 67 bpm with old anterior septal in farct and PACs Discharge Plan Triage Chief Complaint: Other, Pain/Inj ED Provider: Jackson Khan Dx/Rx/DC Orders Clinical Impression: Back pain, Lung mass Instructions: ED Back Pain (Acute or Chronic) Prescriptions: New hydrocodone-acetaminophen [hydrocodone-acetaminophen] 5-325 mg tablet 1 tab PO Q4H PRN PRN (Reason: Pain) 2 Days Qty: 10 0RF No Action albuterol sulfate 90 mcg/actuation HFA aerosol inhaler 2 puff INHALATION Q4H PRN (Reason: shortness of breath) Qty: 1 3RF Rx Instructions: administer with spacer valsartan 320 mg tablet 320 mg PO QDAY metoprolol succinate 25 mg tablet extended release 24 hr 25 mg PO QDAY alendronate [Fosamax] 70 mg tablet 70 mg PO QWEEK aspirin [Adult Aspirin Regimen] 81 mg tablet,delayed release (DR/EC) 81 mg PO QDAY clopidogrel [Plavix] 75 mg tablet 75 mg PO QDAY Qty: 30 0RF Primary Care Provider: Care Physician,No Primary Referrals: Clay Forrester DO [Med Staff - Active Staff] - 3-5 Days Richard Lincoln SPINE SPECIALIST, SPINE SPECIALIST-C [Non-Staff] - Activity Restrictions/Additional Instructions: You have a mass in your right upper lobe that will require further evaluation please follow-up with pulmonology. Disposition Disposition: Home, Self Care Discharge Date/Time: 06/03/23 22:37
[2023-06-03 19:39] LABS: Absolute Lymphocyte Count 1.28 X10^3/uL (0.83-4.51); Absolute Neutrophil Count 5.4 X10^3/uL (2.0-7.7); Basophil# 0.03 X10^3/uL; Basophil% 0.4 % (0-1); Eosinophil# 0.05 X10^3/uL; Eosinophils% 0.7 % (0-5); Hematocrit 34.4 % (37-47); Hemoglobin 11.2 g/dL (12.0-15.0); Lymphocyte # 1.28 X10^3/ul (0.83-4.51); Lymphocyte % 17.3 % (19-41); Mean Corp Hgb Conc 32.6 g/dL (32-36); Mean Corpuscular Hgb 36.6 pg (27.0-32.0); Mean Corpuscular Volume 112.4 fL (81-99); Mean Platelet Vol. 8.9 fl (6.2-12.0); Monocyte# 0.57 X10^3/uL; Monocyte% 7.7 % (0-10); NRBC Flagged by Analyzer 0 % (0-5); Neutrophil # 5.43 X10^3/uL (2.7-7.7); Neutrophil % 73.4 % (47-70); Platelet Count 239 K/mm3 (150-450); RBC Distribution Width CV 15.2 % (11.6-14.6); RBC Distribution Width SD 63.1 fl (35.1-43.9); Red Blood Count 3.06 M/mm3 (4.2-5.4); White Blood Count 7.4 K/mm3 (4.4-11.0)
[2023-06-03] MEDS: Ondansetron 4 MG/2 ML Vial IV (19:41)
[2023-06-03] MEDS: Morphine 4 MG/ML Syringe IV (19:41)
[2023-06-03 19:58] LABS: D-Dimer Quantitative (DVT/PE) 1.02 FEU/ug/m (0.27-0.49)
[2023-06-03 20:01] LABS: Anion Gap 7 (5-15); BUN 18 mg/dL (7-18); BUN/Creat Ratio 20.3 RATIO (10-20); Calcium,Total 8.8 mg/dL (8.5-10.1); Chloride 116 mmol/L (98-107); Creatinine, Serum 0.88 mg/dL (0.55-1.02); EST Glomerular Filtration Rate 67 mL/min (>60); Est Glom Filt Rate - Afr Amer 81 mL/min (>60); Estimated Creatinine Clearance 37.61 ml/min; Glucose 104 mg/dL (74-106); Potassium 3.7 mmol/L (3.5-5.1); Sodium Level 144 mmol/L (136-145); Troponin-I HS 7 pg/mL (3.0-54.0)
--- NOTE | 2023-06-03 20:15 | CT_ITS ---
EXAM: CT pulmonary angiogram. HISTORY: elevated d-dimer TECHNIQUE: CTA Chest WO/W Contrast Injection A radiation dose optimization technique was used for this scan. Multiplanar reconstructions were obtained. 3-D postprocessing was performed. COMPARISON: Noncontrast chest CT January 11, 2018. LIMITATIONS: Motion artifact. LUNGS: Centrilobular and paraseptal emphysematous changes, moderate in severity. A mass at the medial aspect of the left lung apex invades the pleura and mediastinum as well as the left anterolateral aspect of the T3 vertebral body. The mass measures 3.5 x 3.5 cm and is new since the prior exam. Scarring in the lung apices bilaterally. PULMONARY VESSELS: No pulmonary emboli identified. PLEURA: Normal. MEDIASTINUM: No pathologically enlarged lymph nodes. Mass in the right lung apex invades the mediastinum described above. HEART: Upper normal in size. AORTA: No thoracic aortic aneurysm or dissection. 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 UPPER ABDOMEN: No significant abnormality. BONES/SOFT TISSUES: Erosive changes in the T3 vertebral body from the mass in the right lung apex/mediastinum. Pectus deformity. Compression deformity of the T11 vertebral body with loss of height of 25%. OTHER: None. CONCLUSION: No evidence of pulmonary embolism. 3.5 x 3.5 cm mass in the medial aspect of the right lung apex concerning for malignancy. The mass invades the pleura, mediastinum and T3 vertebral body. Emphysema. Electronically Signed: Papi Stubbs MD at 21:28 EST , CT/CTA Chest W/WO Contrast IMPRESSION: undefined
[2023-06-03 21:15] VITALS: BP 129/69; PULSE 58; RESP 16; O2SAT 100
[2023-06-03 22:21] VITALS: BP 129/69; PULSE 58; RESP 16; O2SAT 100
== END 2023-06-03 22:37 | disposition home or self-care (01) ==
PROVIDERS: Emergency Provider Emergency Medicine; Visit Provider Emergency Medicine
DX: M54.9 Dorsalgia, unspecified (principal); J44.9 Chronic obstructive pulmonary disease, unspecified; R91.8 Other nonspecific abnormal finding of lung field; F17.210 Nicotine dependence, cigarettes, uncomplicated
CPT/HCPCS: 71275; 80048; 84484; 85025; 85379; 93005; 96374; 96375; 99283; Q9967; J2405

== ENCOUNTER 2023-07-16 21:47 | Emergency (ER) | payer MEDICARE, MEDICAID, SELFPAY ==
[2023-07-16 21:49] VITALS: BP 154/83; PULSE 74; RESP 22; TEMP 36.3; O2SAT 98; BMI 14.7
--- NOTE | 2023-07-16 22:50 | EDS_ITS ---
HPI History of Present Illness Chief Complaint: Chest Pain Informant: patient and family Onset/Context/Timing Onset: Days (3) Activity at onset: gradual Timing: Continuous Quality: Positive for Pressure and Stabbing Location: Left Chest Worsened By: Movement of Torso and Breathing Relieved By: Nothing Associated Symptoms: Positive for Dyspnea, Lightheadedness and Palpitations; Negative for Nausea, Vomiting, Diaphoresis, Cough, Fever or Acid Reflux Narrative Narrative: Patient presents with chest pain that has been constant for the past 3 days. Patient has a known lung mass in her right lung. Daughter states that they have been having a difficult time attempting to do a biopsy on the mass. Patient describes her pain as stabbing and pressure. Patient states it is over the left side of her chest and radiates into the left side of her neck and left scapular area. Patient states it is worse with movement and with breathing. Patient states nothing makes it better. Patient does see palliative care at home and has been taking oxycodone 10 mg tablets with no improvement. CVD Risk Factors: Positive for Hypertension, Family History 1' </=55 and Smoking; Negative for Diabetes or Hypercholesterolemia PE Risk Factors: Positive for Cancer; Negative for Recent Travel/Surgery, Recent Immobilization or Prior DVT or PE [facility] Medical History Abnormal EKG Chest pain COPD (chronic obstructive pulmonary disease) Heart murmur HLD (hyperlipidemia) HTN (hypertension) Lung tumor Nonrheumatic mitral valve regurgitation Nonrheumatic tricuspid valve regurgitation Postmenopausal osteoporosis Spinal stenosis of lumbar region Tobacco use disorder, continuous Vitamin D deficiency Home Medications metoprolol succinate 25 mg tablet,extended release 24 hr 25 mg PO QDAY 11/08/17 [History Last Taken Unknown] hydrocodone-acetaminophen 5-325mg 5mg-325mg 1 tab PO Q4H PRN PRN Pain 2 days #10 TABLETS 06/03/23 [Rx Last Taken Unknown] Nebulizer machine #1 ea 07/16/23 [Rx Last Taken Unknown] ipratropium 0.5 mg-albuterol 3 mg (2.5 mg base)/3 mL nebulization soln 3 ml inhalation Q4H PRN PRN SOB &/OR WHEEZING #180 mL 07/16/23 [Rx Last Taken Unknown] Allergy/AdvReac Type Severity Reaction Status Date / Time aspirin AdvReac Mild GI upset Verified 07/16/23 21:48 Family History Father CAD (coronary artery disease) Hypertension Kidney disease Cancer Hyperlipidemia Heart disease Brother CAD (coronary artery disease) Hypertension Hyperlipidemia Heart disease Mother Osteoarthritis Surgical History hip fracture and surgery History of partial hysterectomy History of vaginal hysterectomy Status post-operative repair of closed fracture of left hip Social History Smoking Status: Former smoker Tobacco: How many years used: 54 alcohol intake: never substance use type: does not use ROS ROS ED Constitutional Constitutional ED: Denies chills or fever(s) Eyes Eyes: Denies blurry vision or change in vision ENT ENT ED: Denies rhinorrhea or sore throat Cardiovascular Cardiovascular: Reports chest pain; Denies palpitations Respiratory/Chest Respiratory/Chest: Reports dyspnea; Denies cough Gastrointestinal Gastrointestinal: Denies nausea or vomiting Genitourinary Genitourinary ED: Reports other Details: Decreased urine output ; Denies dysuria or hematuria Musculoskeletal Musculoskeletal: Reports back pain and neck pain Integumentary Denies abscess or rash Neurologic Neurologic: Denies headache(s) or weakness Allergic/Immunologic Allergic/Immunologic ED: Denies mouth swelling or urticaria EXAM Physical Exam Const Vital Signs: 07/16/23 21:49 07/16/23 21:52 07/16/23 21:52 Temperature 97.3 F L Temperature Source Temporal Pulse Rate 74 Respiratory Rate 22 H Respiratory Effort Short of Breath Labored Short of Breath Labored Respiratory Pattern Tachypnea Blood Pressure 154/83 H Blood Pressure Mean 106 Pulse Ox 98 Oxygen Delivery Method Room Air 07/16/23 23:17 07/17/23 00:00 07/17/23 01:00 Temperature Temperature Source Pulse Rate 68 74 71 Respiratory Rate 24 H 17 14 Respiratory Effort Respiratory Pattern Blood Pressure 153/66 H 143/79 H Blood Pressure Mean 95 100 Pulse Ox 98 98 96 Oxygen Delivery Method Room Air Room Air Room Air Positive well nourished and well developed General Appearance ED: well developed and NAD HEENT Reports moist mucous membranes Neck supple and no JVD Resp normal respiratory effort and clear to auscultation bilaterally Cardio regular rate and regular rhythm GI soft to palpation, non-tender and non-distended Extremity normal to inspection General Extremety ED: Negative for edema or tenderness General Extremity: Negative for edema Neuro oriented x3, CN's II-XII intact bilaterally and no sensory deficits noted Sensorium / Orientation: awake and alert Motor Exam: strength 5/5 throughout Psych mental status grossly normal Heart Score History: Slightly/Non-Suspicious ECG: Nonspecific Repolarization Age: >/= 65 years Risk Factors: >/= 3 Risk Factors or History of CAD Score: 5 MDM MDM MDM Narrative Medical decision making narrative: Differential diagnosis includes cardiac dysrhythmia, cardiac ischemia, pulmonary embolism, lung mass, pneumonia, pleural effusion, pneumothorax, electrolyte abnormality, and anxiety. EKG will be obtained to assess for cardiac dysrhythmia and cardiac ischemia. Chest x-ray will be obtained to assess for pneumonia, pneumothorax, and pleural effusion. CBC will be obtained to assess for leukocytosis and anemia. Basic metabolic profile will be obtained to assess for electrolyte abnormality and renal function. Urinalysis will be obtained to assess for urinary tract infection. High-sensitivity troponin will be obtained to assess for cardiac ischemia. 2-hour repeat high-sensitivity troponin will be obtained to assess for ongoing cardiac ischemia. D-dimer will be obtained to assess for pulmonary embolism. Lab Data Attestation: I reviewed the patient's lab results. Lab results narrative: CBC was reviewed. There is a mild anemia with a hemoglobin of 11.9. Basic metabolic profile was reviewed. BUN was 22 and creatinine was 1.21. These are slightly increased from previous results but not significantly. D-dimer was reviewed and was elevated at 3.94. High-sensitivity troponin was reviewed and was normal at 7. 2-hour repeat high-sensitivity troponin was reviewed and was normal at 7. Labs: Laboratory Results - last 24 hr 07/16/23 07/17/23 21:57 01:43 WBC 9.0 RBC 3.41 L Hgb 11.9 L Hct 38.2 MCV 112.0 H MCH 34.9 H MCHC 31.2 L RDW Std Deviation 51.4 H RDW Coeff of Jael 12.3 Plt Count 248 MPV 10.4 Immature Gran % (Auto) 0.400 Neut % (Auto) 66.6 Lymph % (Auto) 22.6 [place] % (Auto) 7.4 Eos % (Auto) 2.6 Baso % (Auto) 0.4 Absolute Neuts (auto) 6.0 Absolute Lymphs (auto) 2.03 Nucleated RBC % 0 D-Dimer Quant (PE/DVT) 3.94 H* Sodium 138 Potassium 3.7 Chloride 104 Carbon Dioxide 28.0 Anion Gap 6 BUN 22 H Creatinine 1.21 H Estim Creat Clear Calc 25.87 Est GFR (MDRD) Af Amer 56 L Est GFR (MDRD) Non-Af 47 L BUN/Creatinine Ratio 18.2 Glucose 92 Calcium 9.1 Troponin I High Sens 7 7 Radiography Diagnostic Testing: Clinical Impression(s) from Imaging Studies Chest X-Ray 07/16/23 23:35 IMPRESSION: Atelectasis versus infiltrate in the right upper lobe. Electronically Signed: Edil MusaDO at 0:14 EST , Chest CTA 07/17/23 00:12 IMPRESSION: 1. No pulmonary embolism. 2. Increasing size of a medial right upper lobe mass with increased erosive changes of the adjacent mediastinum and T3 vertebral body as compared to 06/03/2023 now with severe pathologic compression fracture of the T3 vertebral body. New erosive changes of the T2 and T4 vertebral bodies. 3. Small right pleural effusion. Electronically Signed: Edil MusaDO at 1:49 EST , Portable 1 view chest x-ray was obtained. On my independent interpretation, lung moss showed atelectasis versus infiltrate in the right upper lobe. There is normal cardiac silhouette. Bony thorax is normal. Radiologist also interpreted the x-ray and agrees. Because of the elevated D-dimer, CTA of the chest was obtained. There is no pulmonary embolism noted. There is increasing size of the right upper lobe mass with increased erosive changes of the T3 vertebral body and now erosive changes into the T2 and T4 vertebral bodies. This was interpreted by the radiologist was also independently reviewed by myself. EKG Initial EKG: Attestation: I personally reviewed and interpreted this EKG as follows: Interpretation: Sinus Rhythm (69), No Acute Injury Pattern and Non- Specific ST Changes Comments: EKG was obtained. On my independent interpretation, it showed a normal sinus rhythm with a rate of 69. CA interval, QRS interval, and QTc intervals were all normal. Webb was normal. There is left ventricular hypertrophy noted. There are nonspecific ST-T wave changes. Prior EKG tracings: available for review Prior: Unchanged (06/03/2023) Treatment and Re-Evaluation :: Patient was given IV fluids, morphine, and Zofran. Patient states had minimal relief of her pain with morphine. Patient was given a dose of Dilaudid. Patient was advised of her findings. Patient already has palliative care at home. Patient was advised that they may need to adjust her analgesics at home. Patient and family understand and are agreeable with the plan. All questions were answered. Discharge Plan Triage Chief Complaint: Chest Pain Other Complaint: Shortness of Breath ED Provider: Leighton Vela Dx/Rx/DC Orders Clinical Impression: Mass of upper lobe of right lung, Chest pain Instructions: ED Chest Pain, Noncardiac Prescriptions: No Action metoprolol succinate 25 mg tablet extended release 24 hr 25 mg PO QDAY hydrocodone-acetaminophen [hydrocodone-acetaminophen] 5-325 mg tablet 1 tab PO Q4H PRN PRN (Reason: Pain) 2 Days Qty: 10 0RF ipratropium-albuterol 0.5 mg-3 mg(2.5 mg base)/3 mL solution for nebulization 3 ml inhalation Q4H PRN PRN (Reason: SOB &/OR WHEEZING) Qty: 180 6RF (DME) Nebulizer machine See Rx Instructions .ROUTE .MEDSUPPLY Qty: 1 0RF Rx Instructions: As directed Primary Care Provider: Gab Gaytan Referrals: Gab Gaytan MD [Primary Care Provider] - 3-5 Days Activity Restrictions/Additional Instructions: Your pain is likely related to the right upper lobe lung mass. Follow-up with your primary care physician and palliative care for further management of your pain. Disposition Disposition: Home, Self Care
--- NOTE | 2023-07-16 23:15 | EKG12_ITS ---
Test Reason : DYSRHYTHMIA Blood Pressure : / mmHG Vent. Rate : 069 BPM Atrial Rate : 069 BPM P-R Int : 104 ms QRS Dur : 068 ms QT Int : 400 ms P-R-T Axes : 033 047 041 degrees QTc Int : 428 ms Sinus rhythm with short MS with Premature atrial complexes Minimal voltage criteria for LVH, may be normal variant ( Sokolow-Mendez ) Nonspecific ST abnormality Abnormal ECG Confirmed by CONNIE TREADWELL, DOTTIE ([id number]), editor in chief newspaper CY OVALLES ([id number]) on 07/23/2023 8:22:15 AM Referred By: REBECCA Confirmed By:DOTTIE ROSALES MD
[2023-07-16 23:17] VITALS: BP 153/66; PULSE 68; RESP 24; O2SAT 98
[2023-07-16 23:20] LABS: Absolute Lymphocyte Count 2.03 X10^3/uL (0.83-4.51); Basophil# 0.04 X10^3/uL; Basophil% 0.4 % (0-1); Eosinophil# 0.23 X10^3/uL; Eosinophils% 2.6 % (0-5); Hematocrit 38.2 % (37-47); Hemoglobin 11.9 g/dL (12.0-15.0); Lymphocyte # 2.03 X10^3/ul (0.83-4.51); Lymphocyte % 22.6 % (19-41); Mean Corp Hgb Conc 31.2 g/dL (32-36); Mean Corpuscular Hgb 34.9 pg (27.0-32.0); Mean Platelet Vol. 10.4 fl (6.2-12.0); Monocyte# 0.66 X10^3/uL; Monocyte% 7.4 % (0-10); NRBC Flagged by Analyzer 0 % (0-5); Neutrophil # 5.97 X10^3/uL (2.7-7.7); Neutrophil % 66.6 % (47-70); Platelet Count 248 K/mm3 (150-450); RBC Distribution Width CV 12.3 % (11.6-14.6); RBC Distribution Width SD 51.4 fl (35.1-43.9); Red Blood Count 3.41 M/mm3 (4.2-5.4)
[2023-07-16] MEDS: Morphine 4 MG/ML Syringe IV (23:28)
[2023-07-16] MEDS: Ondansetron 4 MG/2 ML Vial IV (23:28)
--- NOTE | 2023-07-16 23:35 | RAD_ITS ---
INDICATION: chest pain EXAMINATION/TECHNIQUE: X-RAY - XR Chest 1 View COMPARISON: None. FINDINGS: LINES/DEVICES: None. LUNGS: Atelectasis versus infiltrate in the medial right lung apex. No evidence of a pleural effusion or a pneumothorax. Biapical pleural thickening. Scarring versus atelectasis in the right lung base. No infiltrate is identified. No evidence of a pleural effusion or a pneumothorax. MEDIASTINUM AND CARDIOVASCULAR STRUCTURES: Cardiac silhouette is normal in size and contour. Mediastinum is unremarkable. BONES AND SOFT TISSUES: No acute abnormality. RAD/Chest 1 View (Portable) IMPRESSION: Atelectasis versus infiltrate in the right upper lobe. Electronically Signed: Edil Musa DO at 0:14 EST ,
[2023-07-16 23:41] LABS: Anion Gap 6 (5-15); BUN 22 mg/dL (7-18); BUN/Creat Ratio 18.2 RATIO (10-20); Calcium,Total 9.1 mg/dL (8.5-10.1); Chloride 104 mmol/L (98-107); Creatinine, Serum 1.21 mg/dL (0.55-1.02); EST Glomerular Filtration Rate 47 mL/min (>60); Est Glom Filt Rate - Afr Amer 56 mL/min (>60); Estimated Creatinine Clearance 25.87 ml/min; Glucose 92 mg/dL (74-106); Potassium 3.7 mmol/L (3.5-5.1); Sodium Level 138 mmol/L (136-145); Troponin-I HS (w/2H Reflex) 7 pg/mL (3.0-54.0)
[2023-07-16 23:47] LABS: D-Dimer Quantitative (DVT/PE) 3.94 FEU/ug/m (0.27-0.49)
[2023-07-17] VITALS: PULSE 74; RESP 17; O2SAT 98
--- NOTE | 2023-07-17 00:12 | CT_ITS ---
INDICATION: Elevated D-dimer EXAMINATION: CT CHEST WITH CONTRAST - CTA Chest WO/W Contrast Injection TECHNIQUE: Helically acquired images were obtained of the chest following IV contrast timed in the pulmonary arterial phase with sagittal and coronal reconstructed images. Post-processing of the angiographic images was performed with multiplanar reformation and 3D reconstruction. Individualized dose optimization techniques were used for this CT. IV contrast dosage and agent: 75 mL of [id number]. COMPARISON: 06/03/2023 CT. FINDINGS: LUNGS, PLEURA AND LARGE AIRWAYS: Centrilobular and paraseptal emphysematous changes of the lungs. Small right pleural effusion. Stable biapical pleural thickening. THYROID: Unremarkable. HEART AND PERICARDIUM: No evidence of coronary artery calcification. No pericardial effusion. No evidence of right heart strain. Right ventricle to left ventricle ratio measures less than 1. MEDIASTINUM AND SABA: Again seen is a mass in the medial right upper lung with ill-defined margins measuring approximately 3.7 x 3.4 x 3.2 cm, increased in size as compared to the prior CT. Erosive changes of the mediastinum and the T3 vertebral body is worse as compared to the prior CT. There is newly visualized erosive changes of the adjacent T2 and T4 vertebral bodies. Esophagus is unremarkable. No hiatal hernia. VESSELS: No pulmonary embolism. No thoracic aortic aneurysm. UPPER ABDOMEN: The visualized upper abdomen is unremarkable. CT/CTA Chest W/WO Contrast IMPRESSION: 1. No pulmonary embolism. 2. Increasing size of a medial right upper lobe mass with increased erosive changes of the adjacent mediastinum and T3 vertebral body as compared to 06/03/2023 now with severe pathologic compression fracture of the T3 vertebral body. New erosive changes of the T2 and T4 vertebral bodies. 3. Small right pleural effusion. Electronically Signed: Edil Musa DO at 1:49 EST ,
[2023-07-17 01:00] VITALS: BP 143/79; PULSE 71; RESP 14; O2SAT 96
[2023-07-17 01:13] LABS: Reflex Troponin-HS? (from REC) Y
[2023-07-17] MEDS: 0.9% Normal Saline (1000mL) 1,000 ML 1000 ML IV (01:14)
[2023-07-17 02:12] LABS: Troponin-I HS 7 pg/mL (3.0-54.0)
[2023-07-17] MEDS: HYDROmorphone 1 MG/ML Syringe 0.5 MG IV (02:39)
[2023-07-17 02:57] VITALS: BP 156/79; PULSE 70; RESP 17; O2SAT 95
== END 2023-07-17 02:58 | disposition home or self-care (01) ==
PROVIDERS: Emergency Provider Emergency Medicine; PCP Family Medicine; Visit Provider Emergency Medicine
DX: R91.8 Other nonspecific abnormal finding of lung field (principal); R07.89 Other chest pain; Z51.5 Encounter for palliative care; Z79.891 Long term (current) use of opiate analgesic; Z79.899 Other long term (current) drug therapy; Z87.891 Personal history of nicotine dependence
CPT/HCPCS: 71045; 71275; 80048; 84484; 85025; 85379; 93005; 96361; 96374; 96375; 99285; J7030; Q9967; A4216; J2405